=== PATIENT | female | born 1950 | race Caucasian/White ===

== ENCOUNTER 2016-05-10 10:41 | Emergency (ER) | payer BC ==
[2016-05-10 11:26] VITALS: BP 131/80
--- NOTE | 2016-05-10 11:45 | UC ---
Respiratory Complaint HPI - HPI Summary HPI Summary: worsening cough and congestion over the past 6-7 weeks now coughing so bad she cannot catch her breath - History of Current Complaint Chief Complaint: UCRespiratory Stated Complaint: URI Time Seen by Provider: 05/10/16 11:43 Hx Obtained From: Patient ?: No Onset/Duration: Gradual Onset, Lasting Weeks - 6-7 weeks, Worse Since - past week Timing: Constant Severity Initially: Moderate Severity Currently: Moderate Character: Cough: Nonproductive Aggravating Factors: Nothing Alleviating Factors: Nothing Associated Signs And Symptoms: Positive: Fever, Pleuritic Chest Pain, URI, Nasal Congestion. Negative: Dyspnea, Chills - Allergies/Home Medications Allergies/Adverse Reactions: Allergies Allergy/AdvReac Type Severity Reaction Status Date / Time Amoxicillin Allergy Swelling Verified 05/10/16 11:15 Diphenhydramine Allergy Swelling Verified 05/10/16 11:15 [From Benadryl] Erythromycin Allergy Swelling Verified 05/10/16 11:15 HAIDER Allergy Anaphylatic Uncoded 05/10/16 11:15 Shock SULFA Allergy Swelling Uncoded 05/10/16 11:15 Home Medications: Home Medications Aspirin EC Low Dose* [Ecotrin EC Low Dose*] 81 mg PO DAILY 05/10/16 [History Confirmed 05/10/16] Citalopram TAB* [Celexa TAB*] 1 tab PO DAILY 05/10/16 [History Confirmed ] Fexofenadine (NF) [Ekaterina (NF)] 180 mg PO DAILY 05/10/16 [History Confirmed ] Lansoprazole [Prevacid] 30 mg PO DAILY 05/10/16 [History Confirmed 05/10/16] Metoprolol Tartrate TAB* [Lopressor TAB*] 1 tab PO DAILY 05/10/16 [History Confirmed 05/10/16] Rosuvastatin Calcium [Crestor] 10 mg PO 05/10/16 [History] Valsartan TAB* [Diovan TAB*] 1 tab DAILY 05/10/16 [History Confirmed 05/10/16] metFORMIN* [Glucophage*] 500 mg PO DAILY 05/10/16 [History Confirmed 05/10/16] PMH/Surg Hx/FS Hx/Imm Hx Previously Healthy: No Endocrine History Of: Reports: Diabetes Cardiovascular History Of: Reports: Cardiac Disorders - STENT, Hypertension - Surgical History Surgical History: Yes Surgery Procedure, Year, and Place: STENT-2014, 2 , TUBAL - Family History Known Family History: Positive: None Family History: denies cardiovascular issues in family lineage - Social History Occupation: Retired Lives: With Family Alcohol Use: None Substance Use Type: None Smoking Status (MU): Heavy Every Day Tobacco Smoker Amount Used/How Often: 1 PPD Review of Systems Constitutional: Chills, Fatigue Skin: Negative Eyes: Negative ENT: Negative Respiratory: Cough Cardiovascular: Negative Gastrointestinal: Negative Genitourinary: Negative Motor: Negative Neurovascular: Negative Musculoskeletal: Negative Neurological: Negative Psychological: Negative All Other Systems Reviewed And Are Negative: Yes Physical Exam Triage Information Reviewed: Yes Appearance: No Pain Distress, Well-Nourished, Ill-Appearing Vital Signs: Initial Vital Signs Temp 99.5 F 05/10/16 11:18 Pulse 107 05/10/16 11:18 Resp 24 05/10/16 11:18 BP 131/80 05/10/16 11:18 Pulse Ox 99 05/10/16 11:18 Vital Signs Reviewed: Yes Eye Exam: Normal Eyes: Positive: Conjunctiva Clear ENT Exam: Normal ENT: Positive: Normal ENT inspection, Hearing grossly normal, Pharynx normal, TMs normal. Negative: Nasal congestion, Nasal drainage, Tonsillar swelling, Tonsillar exudate, Trismus, Muffled/hoarse voice Dental Exam: Other Dental: Positive: Other: - several missing teeth Neck exam: Normal Neck: Positive: Supple, Nontender, No Lymphadenopathy Respiratory Exam: Normal Respiratory: Positive: Chest non-tender, Lungs clear, Normal breath sounds, No respiratory distress, No accessory muscle use Cardiovascular Exam: Normal Cardiovascular: Positive: No Murmur, Pulses Normal, Brisk Capillary Refill, Tachycardia Musculoskeletal Exam: Normal Musculoskeletal: Positive: Strength Intact, ROM Intact, No Edema Neurological Exam: Normal Neurological: Positive: Alert, Muscle Tone Normal Psychological Exam: Normal Psychological: Positive: Normal Response To Family, Age Appropriate Behavior Skin Exam: Normal UC Diagnostic Evaluation - Laboratory O2 Sat by Pulse Oximetry: 99 Respiratory Course/Dx - Course Course Of Treatment: Albuterol mdi, tessalon, doxycycline, increase fluids, smoking cesation infortmation - Differential Dx/Diagnosis Differential Diagnosis/HQI/PQRI: Bronchitis, Laryngitis, Lower Resp Infection, Sinusitis Provider Diagnoses: Bronchitis, Nicotine Dependant Discharge - Discharge Plan Condition: Good Disposition: HOME Prescriptions: Albuterol HFA INHALER* [Ventolin HFA Inhaler*] 2 puff INH Q6H PRN #1 mdi PRN Reason: cough/chest tightness Benzonatate CAP* [Tessalon CAP*] 100 mg PO TID PRN #30 cap PRN Reason: cough DOXYcycline CAP(*) [DOXYcycline 100MG CAP(*)] 100 mg PO BID #20 cap Patient Education Materials: How to Stop Smoking (ED), Cigarette Smoking and Your Health (GEN), How to Use a Metered-Dose Inhaler (ED), Acute Bronchitis (ED) , Acute Cough (ED) Referrals: Antonia Mercado [Primary Care Provider] - 1 Week
== END 2016-05-10 12:00 | disposition home or self-care (01) ==
LOC: UCEAST 10:41
DX: J40 Bronchitis, not specified as acute or chronic (principal); F17.290 Nicotine dependence, other tobacco product, uncomplicated; E11.9 Type 2 diabetes mellitus without complications; I10 Essential (primary) hypertension; Z88.1 Allergy status to other antibiotic agents; Z88.6 Allergy status to analgesic agent
CPT/HCPCS: 99212; G0463